=== PATIENT | female | born 1970 | race African-American/Black ===

== ENCOUNTER 2016-12-28 18:32 | Emergency (ER) | payer OTHER ==
[~2016-12-28] VITALS: Ht 162.6 cm; Wt 58.6 kg
[~2016-12-28 18:32] MED LIST: CIPR-231 PO; MECL-114 PO
[2016-12-28 18:36] VITALS: BP 126/54; PULSE 63; RESP 15; O2SAT 99
--- NOTE | 2016-12-28 20:58 | ED.REPORT ---
HPI-Back Pain 40 and Over Date of Service Dec 28, 2016 ED Provider: Matteo Sharpe MD Patient is a 46 year old female who presents to the ED complaining of lumbar back pain after she fell down 4 steps earlier today. The patient states that she slipped, landing on her bottom and lower back with her legs up in the air. Patient localizes her pain to her lower back, with radiation to her neck. She is able to ambulate, but reports the sensation of pressure when doing so. 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 She denies radiation of pain to her extremities, numbness or weakness of her extremities, saddle numbness, bowel incontinence, or urinary incontinence. She took Ibuprofen for her pain prior to arrival. Nursing Notes Stated Complaint: FALL, LOW BACK PAIN Chief Complaint: Multiple Trauma/Fall Nursing Notes Reviewed: Yes Allergies: Coded Allergies: ceftriaxone (Verified Allergy, Intermediate, liver and kidneys sheryl, 12/28) Scheduled Ciprofloxacin (Cipro) 500 Mg Tablet 500 MG PO BID Methocarbamol (Robaxin-750) 750 Mg Tablet 1-2 TAB PO QID Scheduled PRN Ibuprofen (Ibuprofen) 600 Mg Tablet 600 MG PO QID PRN PRN For Pain Meclizine (Bonine) 25 Mg Tab.chew 25 MG PO TID PRN PRN For Dizziness General Time Seen by MD: 20:58 Chief Complaint Back pain Hx Obtained From: Patient Arrived By: Walk-in Sudden in Onset?: No Onset Occurred: 5 - 8 hours ago Symptom Duration: Since onset Caused by: Fall Location: : Generalized Quality: Painful Severity: Current: Moderate Severity: Maximum: Moderate Recent Healthcare: No recent doctor visit, No recent hospitalization Similar Sx Previous: Yes Past Medical History Past Medical History Vertigo Anemia Past Surgical History Reports: Smoking History Never Smoker Social History Alcohol Use: Denies alcohol use Drug Use: Denies drug use Other Social History: Good social support, Local resident Ambulatory Status Independent Review of Systems Female: Denies: Incontinence Musculoskeletal: Reports: Back pain, Denies: Extremity pain Neurologic: Denies: Bladder dysfunction, Bowel dysfunction, Numbness, Weakness Complete sys rev & neg: except as marked. Physical Exam Initial Vital Signs Vital Signs (First) Date Time Temp Pulse Resp B/P Pulse Ox O2 Delivery O2 Flow Rate FiO2 12/28/16 18:36 36.5 63 15 126/54 99 Room Air Initial VS: Reviewed Head / Eyes: Atraumatic, Normocephalic, PERRL ENT: Conjunctiva normal, No scleral icterus Skin: Warm, Dry, No cyanosis Psychiatric: Mood/affect normal, Behavior normal, Normal thought content General/Constitutional: Awake, Alert, No acute distress Respiratory / Chest: No respiratory distress Cardiovascular: Heart rate NL Abdomen: Soft, Non-tender Back: No CVA tenderness Flank / Spine / Paraspinal: Positive: Lumbar spine tender... (with muscular spasm), Negative: Thoracic spine tender... No sided radiation of her pain Neurologic: Oriented X3, Speech NL, No motor deficits, No sensory deficits, Reflexes equal bilat Neck: Supple, No midline vertebral tend Interpretation & Diagnostics X-Ray Interpretation Xray Interpretation: IMPRESSION: No visualized fracture. Dictated by: Rubi Telles M.D. on 12/28/2016 at 21:25 Approved by: Rubi Telles M.D. on 12/28/2016 at 21:26 Study Performed: Lumbar X-ray Interpretation / Wet Read by: Interpret - Radiologist Re-Eval/Medical Decision Med Decision/Clinical Course 46-year-old with a low level fall onto her buttocks and pain in the low back with some spasm radiating upwards to her neck. No neurological symptoms and no findings on exam. X-rays of the lumbar spine are negative. Home with Robaxin plus ongoing ibuprofen. Follow up with PCP. No indication for advanced imaging. Source of Hx: Old records Re-Evaluation/Progress : Time of Eval: 22:01 Patient Status: Condition improved Re-Evaluation/Progress Note: Patient was informed that her x-ray was negative. Patient understands and agrees with the plan to be discharged home. Discharge instructions and follow-up discussed. All questions were addressed. Return to the ED warnings given. Counseled Regarding: Diagnosis, Need for follow-up, When/why to return to ED Discharge & Departure Impression: Primary Impression: Lumbar spine strain Encounter type: initial encounter Qualified Code: S39.012A - Strain of muscle, fascia and tendon of lower back, initial encounter Disposition: Home Discharge Condition All VS Reviewed: Yes Condition: Stable Patient Instructions: Low Back Strain (ED) Additional Instructions: Rest as much as possible. Apply heat to the area for comfort. See it as little as possible, and use a back roll to maintain posture if you must sit, as in a car. Avoid bending or lifting and slouched posture. Continue ibuprofen at 600 mg four times daily. Add Robaxin 1-2 tablets four times daily if needed for spasm. Follow-up with your doctor in the office. Return if any immediate issues, particularly numbness, tingling, weakness, or any bowel or bladder problems. Referrals: [facility] (PCP) [place] Attestation Portions of this note were transcribed by Carmen Fair. I, Dr. Sharpe personally performed the history, physical exam and medical decision-making; I reviewed and confirmed the accuracy of the information in the transcribed note. Signed by: Lilo Evans, 12/28/2016 2003 copies to: [facility] Matteo Sharpe MD Dec 28, 2016 20:58 Carmen Fair Dec 28, 2016 21:07
[2016-12-28 21:01] VITALS: BP 100/46; PULSE 60; RESP 20; O2SAT 100
--- NOTE | 2016-12-28 21:28 | DRSVH ---
PROCEDURE: X-RAY LUMBAR SPINE, 2 OR 3 VIEW INDICATIONS: fall onto backside TECHNIQUE: 3 views of the lumbar spine were acquired. COMPARISON: None. FINDINGS: Bones: 5 [id number] vertebrae are present. There is trace retrolisthesis of L5 on S1. No vert ebral body compression fractures. No suspicious bony lesions. Soft tissues: Overlying bowel gas pattern is normal. No suspicious soft tissue calcifications. IMPRESSION: No visualized fracture. Dictated by: Rubi Telles M.D. on 12/28/2016 at 21:25 Approved by: Rubi Telles M.D. on 12/28/2016 at 21:26
[2016-12-28] MEDS ORDERED: METH-313 PO (21:47)
[2016-12-28] MEDS ORDERED: IBUP-1827 PO (21:47)
== END 2016-12-28 22:37 | disposition home or self-care (01) ==
LOC: SED 18:32
DX: S39.012A Strain of muscle, fascia and tendon of lower back, initial encounter (principal); W10.8XXA Fall (on) (from) other stairs and steps, initial encounter; Y93.89 Activity, other specified; Y92.89 Other specified places as the place of occurrence of the external cause; Y99.8 Other external cause status; Z88.1 Allergy status to other antibiotic agents